=== PATIENT | male | born 1940 | race Caucasian/White ===

== ENCOUNTER → 2016-09-19 | Outpatient (CLI) | payer OTHER ==
[~2016-09-19] MED LIST: IOPAMIDOL (ISOVUE-300) 100 ML BTL ONE
[2016-09-19 16:09] LABS: CREATININE 1.1 mg/dL (0.7-1.3); GLOMERULAR FILTRATION RATE > 60
== END ==
LOC: FIMAGING 15:20
PROVIDERS: ATTEND Psychiatry & Neurology Neurology
DX: I67.2 Cerebral atherosclerosis (principal); G45.8 Other transient cerebral ischemic attacks and related syndromes; G31.84 Mild cognitive impairment of uncertain or unknown etiology
CPT/HCPCS: 70470; Q9967